=== PATIENT | female | born 1955 | race Hispanic/Latino ===

== ENCOUNTER 2016-12-06 13:27 | Emergency (ER) | payer BC ==
[2016-12-06 13:28] VITALS: BMI 22.4
--- NOTE | 2016-12-06 13:54 | C.PDOC ---
History Of Present Illness SP RAPID RESPONSE FOR RECUR SZ-LIKE EPISODE ONSET MASSEUR/MASSEUSE. D/W RAPID RESPONSE TEAM DR ANDRE: PT WITNESSED TO HAVE GEN SZ-LIKE ACTIVITY BUT PT WAS AWAKE AND INTERACTIVE. NO TRAUMA. SX LASTING APPROX 20 MINS. PS HAS MULT PRIOR SIM SX THIS YEAR. S/P EVAL PMD FOR SAME BUT NO CAROTID, NEURO IMAGING, TILT TABLE DONE. CURRENTLY ASYMPT. EXAM NEG Time Seen by Provider: 12/06/16 13:34 History Per: Patient History/Exam Limitations: no limitations Onset/Duration Of Symptoms: Other (MASSEUR/MASSEUSE) Current Symptoms Are (Timing): Still Present Recent travel outside of the [place]: No Past Medical History Reviewed: Historical Data, Nursing Documentation, Vital Signs Vital Signs: Last Vital Signs Temp 98.6 F 12/06/16 14:30 Pulse 84 12/06/16 14:30 Resp 18 12/06/16 14:30 BP 142/80 12/06/16 14:30 Pulse Ox 95 12/06/16 14:30 Family History: States: Unknown Family Hx - Social History Hx Alcohol Use: No Hx Substance Use: No Review Of Systems Except As Marked, All Systems Reviewed And Found Negative. Constitutional: Negative for: Fever, Chills Cardiovascular: Negative for: Chest Pain Respiratory: Negative for: Cough Gastrointestinal: Negative for: Vomiting Skin: Negative for: Rash Neurological: Positive for: Seizures. Negative for: Weakness, Numbness, Headache Physical Exam - Physical Exam Appears: Non-toxic, No Acute Distress Skin: Normal Color, Warm, Dry Head: Atraumatic, Normacephalic Oral Mucosa: Moist Neck: Normal ROM, No Midline Cervical Tenderness, No Paracervical Tenderness, Supple Chest: Symmetrical Cardiovascular: Rhythm Regular Respiratory: Normal Breath Sounds, No Rales, No Rhonchi, No Wheezing Gastrointestinal/Abdominal: Soft, No Tenderness, No Guarding, No Rebound Back: Normal Inspection Extremity: Normal ROM, Capillary Refill (< 2 sec.) Neurological/Psych: Oriented x3, Normal Speech, Normal Cognition ED Course And Treatment - Laboratory Results Result Diagrams: 12/06/16 14:06 12/06/16 14:50 ECG: Interpreted By Me Interpretation Of ECG: Normal sinus rhythm with sinus arrhythmia Rate From EC (bpm) Pulse Ox Interpretation: Normal - Radiology CXR: Viewed By Me, Read By Radiologist CXR Interpretation: Yes: Other (Minor bibasilar atelectasis.) - CT Scan/US CT HEAD Other Rad Studies (CT/US): Read By Radiologist, Radiology Report Reviewed CT/US Interpretation: IMPRESSION: No acute intracranial hemorrhage. Mild- moderate chronic white matter ischemic changes. Moderate generalized volume loss. Progress - Re-Evaluation Re-evaluation Note: 12/06/16 15:21 EXAM UNCH PRIOR. NO RECUR SX SINCE PRIOR EVAL. VSS. PENDING TROP 12/06/16 16:08 PT CO NAUSEA. REFUSING ANTIEMETICS, STATES WILL TAKE PRILOSEC @ HOME. OFFERED ADMISSION BUT REFUSING, PREFERS PMD FU - Data Reviewed Data Reviewed: Lab, Diagnostic imaging, EKG, Old records Disposition Counseled Patient/Family Regarding: Studies Performed, Diagnosis, Need For Followup - Disposition Referrals: YOUR,PMD [Other] Disposition: HOME/ ROUTINE Disposition Time: 16:09 Condition: IMPROVED Instructions: Recurrent Seizures in Adults (ED) - Clinical Impression Clinical Impression: Seizure-like activity - Scribe Statement The provider has reviewed the documentation as recorded by the [facility] SM Provider Attestation: All medical record entries made by the Scribe were at my direction and personally dictated by me. I have reviewed the chart and agree that the record accurately reflects my personal performance of the history, physical exam, medical decision making, and the department course for this patient. I have also personally directed, reviewed, and agree with the discharge instructions and disposition.
[2016-12-06 14:12] LABS: BASO # 0.1 K/uL (0.0-0.2); BASO % 1.1 % (0.0-2.0); EOS % 0.4 % (0.0-4.0); HEMATOCRIT 40.1 % (34.0-47.0); LYMPH # 1.8 K/uL (1.0-4.3); LYMPH % 25.8 % (20.0-40.0); MEAN CORPUSCULAR HEMOGLOBIN 33.3 pg (27.0-31.0); MEAN CORPUSCULAR HGB CONC 33.6 g/dL (33.0-37.0); MEAN PLATELET VOLUME 8.5 fL (7.2-11.7); MONO # 0.6 K/uL (0.0-0.8); MONO % 9.3 % (0.0-10.0); NRBC % 0.1 % (0.0-2.0); RED CELL DISTRIBUTION WIDTH 14.8 % (11.5-14.5); WHITE BLOOD COUNT 6.8 K/uL (4.8-10.8)
--- NOTE | 2016-12-06 14:22 | RAD ---
PROCEDURE: CHEST RADIOGRAPH, 1 VIEW HISTORY: Seizure. COMPARISON: No prior study available for comparison. FINDINGS: LUNGS: Minor bibasilar atelectasis. PLEURA: No pneumothorax or pleural fluid seen. CARDIOVASCULAR: Normal. OSSEOUS STRUCTURES: Minor degenerative spondylosis of the thoracic spine. There is a mild dextroscoliosis centered in the lower thoracic region. . Minor degenerative changes both acromioclavicular joints. VISUALIZED UPPER ABDOMEN: Normal. OTHER FINDINGS: None. IMPRESSION: Minor bibasilar atelectasis.
[2016-12-06 14:31] LABS: MEAN CELL VOLUME 99.1 fL (81.0-99.0)
--- NOTE | 2016-12-06 14:32 | CT ---
PROCEDURE: CT HEAD WITHOUT CONTRAST. HISTORY: seizure COMPARISON: No prior study available for comparison TECHNIQUE: Axial computed tomography images were obtained through the head/brain without intravenous contrast. Radiation dose: Total exam DLP = 837.67 mGy-cm. This CT exam was performed using one or more of the following dose reduction techniques: Automated exposure control, adjustment of the mA and/or kV according to patient size, and/or use of iterative reconstruction technique. FINDINGS: HEMORRHAGE: No acute parenchymal subarachnoid nor extra-axial hemorrhage. BRAIN: No evidence of large acute infarct. Mild to moderate diffuse/confluent chronic white matter ischemic changes. No obvious parenchymal nor extra-axial mass or collection seen on this noncontrast study. Moderate generalized volume loss VENTRICLES: No obstructive hydrocephalus. CALVARIUM: There are no acute calvarial fractures. PARANASAL SINUSES: Unremarkable as visualized. No significant inflammatory changes. MASTOID AIR CELLS: Unremarkable as visualized. No inflammatory changes. OTHER FINDINGS: None. IMPRESSION: No acute intracranial hemorrhage. Mild-moderate chronic white matter ischemic changes. Moderate generalized volume loss.
[2016-12-06 15:04] LABS: ALB/GLOB RATIO 1.2 (1.0-2.1); ALKALINE PHOSPHATASE 82 U/L (38-126); ALT/SGPT 78 U/L (9-52); AST/SGOT 79 U/L (14-36); BILIRUBIN,TOTAL 0.6 mg/dL (0.2-1.3); BLOOD UREA NITROGEN 10 mg/dL (7-17); CALCIUM 9.4 mg/dl (8.6-10.4); CARBON DIOXIDE 25 mmol/L (22-30); CHLORIDE 96 mmol/L (98-107); GFR AFRICAN-AMERICAN > 60; GLUCOSE,RANDOM 99 mg/dL (65-105); POTASSIUM 3.9 mmol/L (3.6-5.2); SODIUM 135 mmol/L (132-148); TOTAL PROTEIN 7.8 g/dL (6.3-8.3)
[2016-12-06 16:11] VITALS: BP 151/88; PULSE 76; RESP 20; O2SAT 96
[2016-12-06 16:14] VITALS: TEMP 97.9
--- NOTE | 2016-12-06 16:38 | PCM.RRT ---
[employer] Nurses Assessment - Situation [employer] Responder Arrival Time: 06:13 Location: Same day surgery [employer] Called By: RN - IV IV Inserted during [employer]?: Yes New IV Insertion Tolerance: Excellent - Respiratory Oxygen Delivery Method: Room Air - Stat Labs Ordered [employer] Stat Labs Ordered: CBC, BMP, TROPONIN CPR started during [employer] WORKER?: No I.Reason for [employer] - A) Acute Change in Patient: (Select all that apply): Staff member or family is worried about patient - Neurological Status (Select all that apply): Alert, Responsive, Oriented - Respiratory Oxygen Delivery Method: Room Air - Constitutional Appears: Non-toxic, No Acute Distress Additional Comments: having visible intermittent tremors - Head Head Exam: ATRAUMATIC, NORMAL INSPECTION, NORMOCEPHALIC - Eyes Eye Exam: EOMI, Normal appearance - Respiratory Exam Respiratory Exam: NORMAL BREATHING PATTERN. absent: Wheezes - Cardiovascular Exam Cardiovascular Exam: +S1, +S2 - GI/Abdominal Exam GI & Abdominal Exam: Soft, Normal Bowel Sounds - Neurological Exam Neurological Exam: Alert, Awake, CN II-XII Intact, Oriented x3 Additional exam: tremors noted - Extremities Exam Extremities Exam: Full ROM, Normal Capillary Refill, Normal Inspection. absent : Pedal Edema Plan - Assessment of Findings&Treatment Plan [employer] called in same day surgery by nursing team after fellow co-worker was noted to have a change in neurologic functionality. Staffworker now patient was gripping a table and appearing to maintain balance. Patient was not responding when spoken to although appeared to be focused on holding onto the table. Fellow colleague then brought patient to a stretcher to lie down. At the time, anesthesia was nearby as well as other members of the medical staff. Patient remained awake, alert and oriented although appeared to have questionable seizure activity evidenced by intermitted tremors. On initial exam, patient's vitals were HR 119, BP 180/100, 93 Saturation on room air. Patient's vitals later improved at 1:19 pm. At this time, BP decreased to 168/77 and later 142/ 76. Blood was collected to check CBC, CMP and troponins. Patient was brought to the ED via stretcher to be evaluated. Patient remained responsive and able to converse throughout.
--- NOTE | 2016-12-08 18:21 | CARD ---
APPROVED REPORT EKG Measurement Heart [id number] <Conclusion> Normal sinus rhythm with sinus arrhythmia Normal ECG
== END 2016-12-06 16:17 | disposition home or self-care (01) ==
LOC: C.ER 13:27
DX: R56.9 Unspecified convulsions (principal)

== ENCOUNTER 2018-08-20 13:53 | Outpatient (CLI) | payer BC | END 2018-08-20 13:54 | disposition home or self-care (01) | LOC: C.MAMMO 13:54 | DX: Z12.31 Encounter for screening mammogram for malignant neoplasm of breast (principal) ==